=== PATIENT | male | born 1930 | race Asian ===

== ENCOUNTER 2018-01-15 04:45 | Inpatient (IN) | payer OTHER ==
[~2018-01-15] VITALS: Ht 167.6 cm; Wt 54.9 kg
[2018-01-15] MEDS ORDERED: FUROSEMIDE20 M1 ORAL (04:49)
[2018-01-15] MEDS ORDERED: POTASSIUM CHLO10 MEQ ORAL (04:49)
[2018-01-15] MEDS ORDERED: Ipratropium 0.02% Inh Soln 2.5ml UD HHN ONE (05:00)
[2018-01-15] MEDS ORDERED: Albuterol ud Inhalation HHN ONE (05:00)
[2018-01-15 05:10] VITALS: BP 136/71
[2018-01-15 05:15] LABS: HEMATOCRIT 25.8 % (42.0-52.0); HEMOGLOBIN 8.3 G/DL (14.2-18.0); MEAN CORPUSCULAR VOLUME 107 FL (80-99); PLATELET COUNT 65 K/UL (150-450); RED CELL DISTRIBUTION WIDTH 15.5 % (11.6-14.8); WHITE BLOOD COUNT 4.5 K/UL (4.8-10.8)
[2018-01-15 05:34] LABS: ANION GAP 9 mmol/L (5-15); BLOOD UREA NITROGEN 31 mg/dL (7-18); CALCIUM 9.4 MG/DL (8.5-10.1); CARBON DIOXIDE 27 MMOL/L (21-32); CHLORIDE 95 MMOL/L (98-107); CREATININE 2.2 MG/DL (0.55-1.30); POTASSIUM 4.2 MMOL/L (3.5-5.1); SODIUM 131 MMOL/L (136-145)
[2018-01-15 05:35] LABS: INR 1.7 (0.9-1.1)
[2018-01-15 05:38] LABS: APPEARANCE,URINE CLEAR; BILIRUBIN, URINE NEGATIVE (NEGATIVE); GLUCOSE, URINE (UA) NEGATIVE (NEGATIVE); KETONES,URINE NEGATIVE (NEGATIVE); LEUKOCYTE ESTERASE ,URINE NEGATIVE (NEGATIVE); NITRITE,URINE NEGATIVE (NEGATIVE); PH,URINE 5 (4.5-8.0); PROTEIN,URINE 2+ (NEGATIVE); UROBILINOGEN,URINE NORMAL MG/DL (0.0-1.0)
[2018-01-15 05:45] LABS: COLOR,URINE YELLOW
[2018-01-15 05:48] VITALS: BP 87/54
[2018-01-15 05:48] LABS: ALANINE AMINOTRANSFERASE 33 U/L (12-78); ALBUMIN 1.2 G/DL (3.4-5.0); ALBUMIN/GLOBULIN RATIO 0.1 (1.0-2.7); ALKALINE PHOSPHATASE 71 U/L (46-116); ASPARTATE AMINO TRANSFERASE 25 U/L (15-37); BILIRUBIN,TOTAL 0.6 MG/DL (0.2-1.0); CKMB 1.3 NG/ML (0.0-3.6); CREATINE KINASE 53 U/L (26-308)
--- NOTE | 2018-01-15 05:54 | Emergency Room Report ---
History of Present Illness General Chief Complaint: Dyspnea/Respdistress Source: Family Member, EMS Present Illness HPI This is an 87-year-old Upper Sorbian speaking male with no past medical history per his daughter. He presents with chief complaint of shortness of breath. He started complaining of shortness of breath and weakness starting around Father' s Day in December. He saw a primary care doctor once and who told him that he has some leaky valves. He was doing well to tonight when he had acute onset of shortness of breath. Per EMS he was in respiratory distress and was hypoxic. They put him on BiPAP and gave him 0.8 of nitroglycerin. He denies any chest pain, nausea or vomiting or diarrhea. Per daughter, he has significant weight loss for the last 6 or 8 months. Allergies: Coded Allergies: No Known Allergies (Unverified , 01/15/18) Patient History Past Medical History: none, see triage record, old chart reviewed Past Surgical History: none Pertinent Family History: none Social History: Denies: smoking, alcohol use, drug use Immunizations: other Reviewed Nursing Documentation: PMH: Agreed; PSxH: Agreed Nursing Documentation-PMH Past Medical History: No History, Except For Hx Cardiac Problems: Yes - CHF Hx Hypertension: Yes Hx COPD: Yes Review of Systems Constitutional: Reports: malaise Eye: Denies: eye pain, blurred vision ENT: Denies: ear pain, nose congestion, throat swelling Respiratory: Reports: shortness of breath Cardiovascular: Denies: chest pain, palpitations Gastrointestinal: Denies: abdominal pain, diarrhea, nausea, vomiting Musculoskeletal: Denies: back pain, joint pain Skin: Denies: rash Neurological: Denies: headache, numbness Endocrine: Denies: increased thirst, increased urine Hematologic/Lymphatic: Denies: easy bruising All Other Systems: negative except mentioned in HPI Physical Exam Vital Signs Date Time Temp Pulse Resp B/P (MAP) Pulse Ox O2 Delivery O2 Flow Rate FiO2 01/15/18 04:40 98.7 112 16 136/71 94 Non-Rebreather 15.0 98.8 01/15/18 04:57 50 vitals with tachycardia and hypoxia Sp02 EP Interpretation: abnormal General Appearance: moderate distress, cachetic Head: normocephalic, atraumatic Eyes: bilateral eye PERRL, bilateral eye EOMI ENT: hearing grossly normal, normal pharynx Neck: full range of motion, supple, no meningismus Respiratory: chest non-tender, respiratory distress, decreased breath sounds, rales, wheezing Cardiovascular #1: regular rate, rhythm, no murmur Gastrointestinal: normal bowel sounds, non tender, no mass, no organomegaly, no bruit, non-distended Musculoskeletal: back normal, normal range of motion, swelling - 1+ pitting edema Neurologic: alert, oriented x3 Psychiatric: mood/affect normal Skin: warm/dry Procedures Critical Care Time Critical Care Time Critical care is mandated in this patient who presented with pulmonary edema. Patient require my urgent intervention to attenuate the risks of and respiratory collapse which may lead to cardiovascular collapse and . Critical care time is 35 minutes excluding any reportable procedure. Critical care time included evaluation, multiple reevaluation, looking at old charts, interpreting laboratory and diagnostic data, discussing case with patient and family and consultants, and charting. Medical Decision Making Diagnostic Impression: Primary Impression: Respiratory failure with hypoxia Qualified Codes: J96.01 - Acute respiratory failure with hypoxia Additional Impressions: Pulmonary edema Qualified Codes: J81.0 - Acute pulmonary edema Pleural effusion Anemia Qualified Codes: D64.9 - Anemia, unspecified Thrombocytopenia ACS (acute coronary syndrome) Acute exacerbation of CHF (congestive heart failure) Qualified Codes: I50.9 - Heart failure, unspecified Proteinuria Qualified Codes: R80.9 - Proteinuria, unspecified Weight loss, abnormal CKD (chronic kidney disease) Qualified Codes: N18.9 - Chronic kidney disease, unspecified Hyperglycemia ER Course This patient presents with respiratory distress secondary to pulmonary edema and large right pleural effusion. He is anemic, thrombocytopenic and elevated INR. Also has hyperglycemia. I suspect that he has a neoplastic process like pancreatic cancer with metastases to liver and lung. He is much more comfortable on BiPAP. Lasix given. Aspirin given. He has no chest pain. I discussed the case with Dr. Bundy who will admit. Laboratory Tests Test 01/15/18 04:40 01/15/18 05:10 White Blood Count 4.5 K/UL (4.8-10.8) L Red Blood Count 2.40 M/UL (4.70-6.10) L Hemoglobin 8.3 G/DL (14.2-18.0) L Hematocrit 25.8 % (42.0-52.0) L Mean Corpuscular Volume 107 FL (80-99) H Mean Corpuscular Hemoglobin 34.7 PG (27.0-31.0) H Mean Corpuscular Hemoglobin Concent 32.3 G/DL (32.0-36.0) Red Cell Distribution Width 15.5 % (11.6-14.8) H Platelet Count 65 K/UL (150-450) L Mean Platelet Volume 8.7 FL (6.5-10.1) Neutrophils (%) (Auto) % (45.0-75.0) Lymphocytes (%) (Auto) % (20.0-45.0) Monocytes (%) (Auto) % (1.0-10.0) Eosinophils (%) (Auto) % (0.0-3.0) Basophils (%) (Auto) % (0.0-2.0) Prothrombin Time 17.7 SEC (9.30-11.50) H Prothromb Time International Ratio 1.7 (0.9-1.1) H Activated Partial Thromboplast Time 50 SEC (23-33) H Sodium Level 131 MMOL/L (136-145) L Potassium Level 4.2 MMOL/L (3.5-5.1) Chloride Level 95 MMOL/L (98-107) L Carbon Dioxide Level 27 MMOL/L (21-32) Anion Gap 9 mmol/L (5-15) Blood Urea Nitrogen 31 mg/dL (7-18) H Creatinine 2.2 MG/DL (0.55-1.30) H Estimat Glomerular Filtration Rate mL/min (>60) Glucose Level 175 MG/DL (74-106) H Calcium Level 9.4 MG/DL (8.5-10.1) Total Bilirubin 0.6 MG/DL (0.2-1.0) Aspartate Amino Transf (AST/SGOT) 25 U/L (15-37) Alanine Aminotransferase (ALT/SGPT) 33 U/L (12-78) Alkaline Phosphatase 71 U/L (46-116) Total Creatine Kinase 53 U/L (26-308) Creatine Kinase MB 1.3 NG/ML (0.0-3.6) Creatine Kinase MB Relative Index 2.4 Troponin I 0.354 ng/mL (0.000-0.056) Pro-B-Type Natriuretic Peptide 8282 pg/mL (0-125) H Total Protein 12.0 G/DL (6.4-8.2) H Albumin 1.2 G/DL (3.4-5.0) L Globulin 10.8 g/dL Albumin/Globulin Ratio 0.1 (1.0-2.7) L Urine Color Yellow Urine Appearance Clear Urine pH 5 (4.5-8.0) Urine Specific [place] 1.030 (1.005-1.035) Urine Protein 2+ (NEGATIVE) H Urine Glucose (UA) Negative (NEGATIVE) Urine Ketones Negative (NEGATIVE) Urine Occult Blood 2+ (NEGATIVE) H Urine Nitrite Negative (NEGATIVE) Urine Bilirubin Negative (NEGATIVE) Urine Urobilinogen Normal MG/DL (0.0-1.0) Urine Leukocyte Esterase Negative (NEGATIVE) Urine RBC 0-2 /HPF (0 - 0) H Urine WBC 0 /HPF (0 - 0) Urine Squamous Epithelial Cells None /LPF (NONE/OCC) Urine Bacteria Few /HPF (NONE) Urine Fine Granular Casts 0-2 /LPF (NONE) H Urine Coarse Granular Casts 0-2 /LPF (NONE) H Lab Results Impression labs with multiple abnormalities EKG Diagnostic Results Rate: tachycardiac Rhythm: NSR ST Segments: other - NSST changes Rhythm Strip Diag. Results Rhythm Strip Time: 05:52 EP Interpretation: yes Rate: 92 Rhythm: NSR, no PVC's, no ectopy Chest X-Ray Diagnostic Results Chest X-Ray Diagnostic Results : Chest X-Ray Ordered: Yes # of Views/Limited/Complete: 1 View Indication: Shortness of Breath EP Interpretation: Yes Interpretation: no pneumothorax, other - large rt pleural effusion. vasc congestion Impression: Other - rt pleural effusion Electronically Signed by: Dameon Headley MD Last Vital Signs Date Time Temp Pulse Resp B/P (MAP) Pulse Ox O2 Delivery O2 Flow Rate FiO2 01/15/18 05:15 103 27 97 Bi-pap 50 01/15/18 05:10 98.8 136/71 15.0 98.8 Status: improved Disposition: ADMITTED INPATIENT Condition: Critical Referrals: NOT CHOSEN SCOOBY/,REFERRING (PCP) DAMEON HEADLEY M.D. Jan 15, 2018 05:54
[2018-01-15] MEDS ORDERED: Aspirin Baby 81mg ONE (06:31)
[2018-01-15 07:00] VITALS: BP 102/56
--- NOTE | 2018-01-15 07:20 | Infectious Diseases Prog Note ---
Assessment/Plan Problems: (1) Pneumonia Assessment & Plan: will star zosyn , send sputum culture (2) Pleural effusion Assessment & Plan: recommend thoracentesis and fluids to be sent for bacterial culture , fungal , AFB. AND CYTOLOGY (3) CKD (chronic kidney disease) Assessment & Plan: avoid nephrotoxics, monitor renal function (4) Weight loss, abnormal Assessment & Plan: will screen for HIV, await whole body CT scan (5) Respiratory failure with hypoxia Assessment & Plan: due to the above , pulmonary is following Subjective Allergies: Coded Allergies: No Known Allergies (Unverified , 01/15/18) Objective Vital Signs Last 24 Hour Vital Signs Date Time Temp Pulse Resp B/P (MAP) Pulse Ox O2 Delivery O2 Flow Rate FiO2 01/15/18 07:14 Bi-pap 50 01/15/18 07:00 94 20 102/56 96 Bi-pap 15.0 50 01/15/18 05:48 94 23 87/54 97 Bi-pap 15.0 50 01/15/18 05:15 103 27 97 Bi-pap 50 01/15/18 05:10 98.8 112 30 136/71 94 Non-Rebreather 15.0 98.8 01/15/18 05:10 111 30 Bi-pap 15.0 50 01/15/18 05:05 111 30 94 Bi-pap 50 01/15/18 04:59 111 30 Bi-pap 50 01/15/18 04:57 111 30 97 Facial 50 01/15/18 04:40 98.7 112 16 136/71 94 Non-Rebreather 15.0 98.8 Height (Feet): 5 Height (Inches): 6.00 Weight (Pounds): 130 Laboratory Tests Test 01/15/18 04:40 01/15/18 05:10 White Blood Count 4.5 K/UL (4.8-10.8) L Red Blood Count 2.40 M/UL (4.70-6.10) L Hemoglobin 8.3 G/DL (14.2-18.0) L Hematocrit 25.8 % (42.0-52.0) L Mean Corpuscular Volume 107 FL (80-99) H Mean Corpuscular Hemoglobin 34.7 PG (27.0-31.0) H Mean Corpuscular Hemoglobin Concent 32.3 G/DL (32.0-36.0) Red Cell Distribution Width 15.5 % (11.6-14.8) H Platelet Count 65 K/UL (150-450) L Mean Platelet Volume 8.7 FL (6.5-10.1) Neutrophils (%) (Auto) % (45.0-75.0) Lymphocytes (%) (Auto) % (20.0-45.0) Monocytes (%) (Auto) % (1.0-10.0) Eosinophils (%) (Auto) % (0.0-3.0) Basophils (%) (Auto) % (0.0-2.0) Prothrombin Time 17.7 SEC (9.30-11.50) H Prothromb Time International Ratio 1.7 (0.9-1.1) H Activated Partial Thromboplast Time 50 SEC (23-33) H Sodium Level 131 MMOL/L (136-145) L Potassium Level 4.2 MMOL/L (3.5-5.1) Chloride Level 95 MMOL/L (98-107) L Carbon Dioxide Level 27 MMOL/L (21-32) Anion Gap 9 mmol/L (5-15) Blood Urea Nitrogen 31 mg/dL (7-18) H Creatinine 2.2 MG/DL (0.55-1.30) H Estimat Glomerular Filtration Rate mL/min (>60) Glucose Level 175 MG/DL (74-106) H Calcium Level 9.4 MG/DL (8.5-10.1) Total Bilirubin 0.6 MG/DL (0.2-1.0) Aspartate Amino Transf (AST/SGOT) 25 U/L (15-37) Alanine Aminotransferase (ALT/SGPT) 33 U/L (12-78) Alkaline Phosphatase 71 U/L (46-116) Total Creatine Kinase 53 U/L (26-308) Creatine Kinase MB 1.3 NG/ML (0.0-3.6) Creatine Kinase MB Relative Index 2.4 Troponin I 0.354 ng/mL (0.000-0.056) Pro-B-Type Natriuretic Peptide 8282 pg/mL (0-125) H Total Protein 12.0 G/DL (6.4-8.2) H Albumin 1.2 G/DL (3.4-5.0) L Globulin 10.8 g/dL Albumin/Globulin Ratio 0.1 (1.0-2.7) L Urine Color Yellow Urine Appearance Clear Urine pH 5 (4.5-8.0) Urine Specific [place] 1.030 (1.005-1.035) Urine Protein 2+ (NEGATIVE) H Urine Glucose (UA) Negative (NEGATIVE) Urine Ketones Negative (NEGATIVE) Urine Occult Blood 2+ (NEGATIVE) H Urine Nitrite Negative (NEGATIVE) Urine Bilirubin Negative (NEGATIVE) Urine Urobilinogen Normal MG/DL (0.0-1.0) Urine Leukocyte Esterase Negative (NEGATIVE) Urine RBC 0-2 /HPF (0 - 0) H Urine WBC 0 /HPF (0 - 0) Urine Squamous Epithelial Cells None /LPF (NONE/OCC) Urine Bacteria Few /HPF (NONE) Urine Fine Granular Casts 0-2 /LPF (NONE) H Urine Coarse Granular Casts 0-2 /LPF (NONE) H Current Medications Medications (Trade) Dose Ordered Sig/Jasmin Route PRN Reason Start Time Stop Time Status Last Admin Dose Admin Aspirin (ASA) 162 mg DAILY NG 01/15/18 09:00 02/14/18 08:59 01/15/18 06:32 Piperacillin Sod/ Tazobactam Sod 3.375 gm/Dextrose 110 ml @ 27.5 mls/hr EVERY 8 HOURS IVPB 01/15/18 14:00 01/20/18 13:59 Brittney De Leon M.D. Jan 15, 2018 07:20
[2018-01-15] MEDS ORDERED: Gastrograffin 30ml ORAL PRN (08:15)
[2018-01-15] MEDS ORDERED: Lidocaine 1% Plain 30 ml INJ PRN (08:30)
--- NOTE | 2018-01-15 08:51 | Consultation ---
Consult Note Consult Note DICT # [id number] Abdiel Estrada MD Jan 15, 2018 08:51
[2018-01-15] MEDS ORDERED: Piperacillin/Tazobactam 3.375 GM in D5W 110 ML IVPB SCH ×2 (09:00→14:00)
[2018-01-15] MEDS ORDERED: Aspirin Baby 81mg NG SCH (09:00)
--- NOTE | 2018-01-15 09:02 | History & Physical ---
History and Physical History & Physicial seen and examined. Dictation completed Ignacia Bundy MD Jan 15, 2018 09:02
--- NOTE | 2018-01-15 09:25 | Diagnostic Imaging Report ---
Indication: Dyspnea Comparison: None A single view chest radiograph was obtained. Findings: There is a moderate degree of congestive heart failure present with the cephalized, prominent pulmonary vessels, interstitial densities bilaterally. Heart is enlarged. There is suspicion of a moderate right pleural effusion. The bones are osteopenic. IMPRESSION: Congestive heart failure. Right pleural effusion. Note: We been asked to perform thoracentesis emergently. Preliminary laboratory results show platelet count of 65,000 and INR 1.7, which puts the patient at significantly increased risk of bleeding. I presume the procedure is being asked to be performed emergently for therapeutic purposes. Suggest administering platelets and fresh frozen plasma immediately, which should only slightly delay the thoracentesis procedure.
[2018-01-15 10:14] LABS: CHOLESTEROL < 50 MG/DL (< 200); HDL CHOLESTEROL 11 MG/DL (40-60); TRIGLYCERIDES 23 MG/DL (30-150)
--- NOTE | 2018-01-15 11:15 | Consultation ---
DATE OF CONSULTATION: 01/15/2018 PULMONARY CONSULTATION CONSULTING PHYSICIAN: Abdiel Estrada M.D. REFERRING PHYSICIAN: Ignacia Bundy M.D. HISTORY OF PRESENT ILLNESS: The patient is a very pleasant 87-year-old Armenian male with no known past medical history, who was in his usual state of health until Father's Day. Since then, he started having progressive shortness of breath, lower extremity edema, and PND. He saw Dr. Puneet Arenas, in [place], who got an echocardiogram and a CT of the chest, abdomen, and pelvis at [facility]. Per the patient's daughter, based on those results he was started on Lasix for presumed diagnosis of valvular heart disease. The patient was in progressive respiratory distress for the past few days and on the day of admission, he had acute onset of worsening shortness of breath. EMS was notified and the patient was brought to the emergency department. He was placed on BiPAP immediately and given nitroglycerin with some relief of his discomfort. Since being here, he has been afebrile. He was on and off of 15 liters and BiPAP, respiratory rate in the 20s. His laboratory evaluation was significant for white count of 4.5, hemoglobin of 8.3, and platelet count of 65. He had INR of 1.7 and creatinine of 2.2 and a troponin of 0.3. His BNP was also elevated. Chest x-ray, which was done in the ER, but is not available for my review. Per the ER doctor demonstrated a large right-sided pleural effusion. The patient was admitted for further evaluation and management. He has been seen by the Infectious Disease service and is being treated with Zosyn for presumptive pneumonia. PAST MEDICAL HISTORY: None. PAST SURGICAL HISTORY: None. ALLERGIES: No known drug allergies. MEDICATIONS: Prior to admission, medications Lasix 20 mg daily and potassium 10 mEq daily. SOCIAL HISTORY: He is from [place], has been in [facility] [place] [address]. No tobacco, alcohol, or drug use. He has supportive family. FAMILY HISTORY: Noncontributory. REVIEW OF SYSTEMS: Unobtainable as the patient is on BiPAP. PHYSICAL EXAMINATION: VITAL SIGNS: Temperature 98.8, pulse 94, blood pressure 102/56, respiratory rate 20, saturating 96% on BiPAP, and FiO2 50. GENERAL: He is an elderly male, in no acute distress on BiPAP. HEENT: Normocephalic and atraumatic. Oropharynx is clear. Moist mucous membranes. NECK: Supple without lymphadenopathy. JVD is 8 cm. CHEST: Scattered coarse breath sounds, decreased at the right base. HEART: Regular rate and rhythm. ABDOMEN: Soft, nontender, and nondistended. EXTREMITIES: No cyanosis or clubbing. There is 1+ edema. ANCILLARY DATA: White count 4.5, hemoglobin 8.3, and platelet count 65. INR 1.7. Sodium 131, potassium 4.2, chloride 95, bicarb 27, BUN 31, creatinine 2.2, glucose 175, and calcium 9.4. Total bilirubin 0.6. AST 25, ALT 33, and alkaline phosphatase 71. CK 53. Troponin 0.354. BNP 8282. Total protein 12. Albumin 1.2. Urinalysis, 2+ protein, 2+ blood, and 0 to 2 red cells. ASSESSMENT: The patient is an 87-year-old male with no previous known medical history presenting with worsening shortness of breath, large right-sided effusion, likely decompensated heart failure with evidence of abnormal renal function, CKD versus cardiorenal function, pancytopenia, and coagulopathy. There is concern for an underlying neoplastic process and decompensated heart failure. The patient is on BiPAP in the [facility]. PROBLEM LIST: 1. Acute hypoxemic respiratory failure on BiPAP, likely multifactorial. 2. CHF with likely decompensated heart failure. 3. Large right-sided pleural effusion. 4. Abnormal creatinine likely cardiorenal syndrome versus underlying CKD versus other etiologies of JEWELL. 5. Pancytopenia. 6. Coagulopathy. 7. Possible pneumonia. 8. Non ST-elevation [place]. 9. Severe protein-calorie malnutrition with albumin of 1.2. TREATMENT PLAN: 1. Continue [facility] care. 2. Continue BiPAP, we will attempt to wean off. 3. Check an ABG. 4. Titrate down FiO2 to keep saturations greater than 90%. 5. Follow up CT chest, abdomen, and pelvis. 6. We will get records from [facility] as well. 7. Echocardiogram. 8. Thoracentesis, all studies to be sent off. 9. Monitor volumes and renal function, followup renal ultrasound and urine studies, we will attempt a trial of diuresis to see if this is cardiorenal syndrome. 10. N.p.o. while on BiPAP, we will obtain a swallow evaluation afterwards. 11. Check duplex of the lower extremities. 12. Hematology evaluation. 13. The patient is a Full Code. 14. I will discuss the case with the patient's primary physician too, Dr. Puneet Arenas. 15. Dr. Bundy, thank you for allowing me to assist in the care of your patient. If I may be of any assistance in the future, please do not hesitate to ask. Bill Smith JOB#: [id number] CC:
--- NOTE | 2018-01-15 11:50 | Diagnostic Imaging Report ---
Indication:Elevated Bun and Creatinine. Technique: Grayscale and duplex Doppler imaging of the kidneys performed. Comparison: None Findings: The right kidney is unremarkable. Both kidneys measure about 9.9 cm in length. There are multiple cysts within the left kidney. There is a focus of echogenicity which is likely a nonobstructive stone within the midportion of the left kidney. Small amount of ascites noted. IVC is unremarkable in appearance. There is a right pleural effusion. The bladder is unremarkable. IMPRESSION: Suspected nonobstructive stone in left kidney. Multiple cysts in the left kidney. Mild ascites Right pleural effusion
[2018-01-15 12:00] VITALS: BP 154/63
--- NOTE | 2018-01-15 13:22 | Consultation ---
Consult Note Consult Note asked to eval for High Cr This is an 87-year-old Ukrainian speaking male with no past medical history per his daughter. He presents with chief complaint of shortness of breath. He started complaining of shortness of breath and weakness starting around Father' s Day in December. He saw a primary care doctor once and who told him that he has some leaky valves. He was doing well to tonight when he had acute onset of shortness of breath. Per EMS he was in respiratory distress and was hypoxic. They put him on BiPAP and gave him 0.8 of nitroglycerin. He denies any chest pain, nausea or vomiting or diarrhea. Per daughter, he has significant weight loss for the last 6 or 8 months. Allergies: Past Medical History: No History, Except For Hx Cardiac Problems: Yes - CHF Hx Hypertension: Yes h/o COPD data reviewed patient examined- currently on BIPAP Assessment/Plan Renal failure Anemia Pancytopenia.Coagulopathy. HypoAlbuminemia HyperGlobulinemia Proteinuria r/o MM Acute hypoxemic respiratory failure on BiPAP CHF with likely decompensated heart failure. Large right-sided pleural effusion. Possible pneumonia. Non ST-elevation [place]. 24h Urine Proteins- Serum Protein electrophoresis UPEP Kidney STEVE Echo 2D KAELYN HYMAN Jan 15, 2018 13:22
[2018-01-15] MEDS ORDERED: Pantoprazole Inj IVP SCH (13:30)
--- NOTE | 2018-01-15 14:00 | Cardiology Report ---
APPROVED REPORT EXAM: Two-dimensional and M-mode echocardiogram with Doppler and color Doppler. INDICATION Congestive Heart Failure M-Mode DIMENSIONS IVSd1.5 (0.7-1.1cm)Left Atrium (MM)3.8 (1.6-4.0cm) LVDd3.0 (3.5-5.6cm)Aortic Root3.5 (2.0-3.7cm) PWd1.7 (0.7-1.1cm)Aortic Cusp Exc.1.5 (1.5-2.0cm) IVSs1.3 cm LVDs2.1 (2.5-4.0cm) Normal left ventricular chamber size, systolic function and wall motion. Left ventricular ejection fraction estimated to be 65-70%. No evidence of left ventricular hypertrophy. No evidence of pericardial effusion. Mild left atrial enlargements . Right cardiac chamber sizes are within normal limits. Focal aortic valve sclerosis with adequate cusp excursion. Thickened mitral valve leaflets with normal excursion. Mitral annulus and aortic root calcification. Pulmonic valve not well visualized. Normal tricuspid valve structure. IVC at normal at size 2.0without physiologic collapse. suggestive of increased RA pressure. A color flow and spectral Doppler study was performed and revealed: Mild aortic regurgitation. Moderate mitral regurgitation. Mitral diastolic velocities suggest reduced left ventricular relaxation c/w mild LV diastolic dysfunction (Grade I ). Moderate tricuspid regurgitation. Tricuspid systolic velocities suggests peak right ventricular systolic pressure of 59 mmHg,consistent with moderate pulmonary hypertension. Trace Pulmonic regurgitation present.
--- NOTE | 2018-01-15 14:14 | Diagnostic Imaging Report ---
APPROVED REPORT CPT Code: 13459 Present Symptoms Shortness of breath BILATERAL: Imaging reveals a patent deep venous system bilaterally. There is no evidence of thrombus within the femoral, popliteal or tibial segments. The greater saphenous veins are also within normal limits. Doppler indicates normal spontaneous flow within these segments.
[2018-01-15] MEDS ORDERED: Phytonadione 10 mg/mL 1ml amp SUBQ SCH (15:00)
[2018-01-15 16:00] VITALS: BP 104/75
[2018-01-15] MEDS ORDERED: Acetaminophen 650 MG SUPP RECTAL PRN (16:00)
--- NOTE | 2018-01-15 17:18 | GI Initial Consult Note ---
History of Present Illness General Date patient seen: Jan 15, 2018 Time patient seen: 17:09 Reason for Hospitalization: Dyspnea/Respdistress Referring physician: KAREEM SAUCEDO Reason for Consultation: ANEMIA Present Illness HPI This is an 87-year-old Hebrew speaking male with no past medical history per his daughter. He presents with chief complaint of shortness of breath. He started complaining of shortness of breath and weakness starting around Father' s Day in December. He saw a primary care doctor once and who told him that he has some leaky valves. He was doing well to [facility] when he had acute onset of shortness of breath. Per EMS he was in respiratory distress and was hypoxic. They put him on BiPAP and gave him 0.8 of nitroglycerin. He denies any chest pain, nausea or vomiting or diarrhea. Per daughter, he has significant weight loss for the last 6 or 8 months. GI consulted for anemia. ROS limited, patient on BiPap dx with pulmonary edema. Scheduled for thoracentesis tomorrow pending FFP transfusion. Patient presents today with hyperchromic macrocytic anemia, pancytopenia and elevated troponin levels. Significant weight loss per family. Unknown history of endoscopy / colonoscopy. Home Meds Reported Medications Potassium Chloride* (K-DUR*) 10 Meq Capsule.er, ORAL DAILY, #7 TAB 0 Refills 01/15/18 Furosemide* (LASIX*) 20 Mg Tablet, ORAL DAILY, TAB 01/15/18 Med list reviewed/reconciled: Yes Allergies: Coded Allergies: No Known Allergies (Unverified , 01/15/18) Patient History Limited by: medical condition History Provided By: Family Member PMH Narrative Past Medical History: none, see triage record, old chart reviewed Past Surgical History: none Pertinent Family History: none Social History: Denies: smoking, alcohol use, drug use Immunizations: other Reviewed Nursing Documentation: PMH: Agreed; PSxH: Agreed Nursing Documentation-PM Past Medical History: No History, Except For Hx Cardiac Problems: Yes - CHF Hx Hypertension: Yes Hx COPD: Yes Social History: Denies: smoking, alcohol use, drug use, other Review of Systems All Other Systems: limited Physical Exam Vital Signs Date Time Temp Pulse Resp B/P (MAP) Pulse Ox O2 Delivery O2 Flow Rate FiO2 01/15/18 04:40 98.7 112 16 136/71 94 Non-Rebreather 15.0 98.8 01/15/18 04:57 50 Sp02 EP Interpretation: reviewed, normal Labs Laboratory Tests Test 01/15/18 04:40 01/15/18 05:10 01/15/18 08:00 01/15/18 08:30 White Blood Count 4.5 K/UL (4.8-10.8) L Red Blood Count 2.40 M/UL (4.70-6.10) L Hemoglobin 8.3 G/DL (14.2-18.0) L Hematocrit 25.8 % (42.0-52.0) L Mean Corpuscular Volume 107 FL (80-99) H Mean Corpuscular Hemoglobin 34.7 PG (27.0-31.0) H Mean Corpuscular Hemoglobin Concent 32.3 G/DL (32.0-36.0) Red Cell Distribution Width 15.5 % (11.6-14.8) H Platelet Count 65 K/UL (150-450) L Mean Platelet Volume 8.7 FL (6.5-10.1) Neutrophils (%) (Auto) % (45.0-75.0) Lymphocytes (%) (Auto) % (20.0-45.0) Monocytes (%) (Auto) % (1.0-10.0) Eosinophils (%) (Auto) % (0.0-3.0) Basophils (%) (Auto) % (0.0-2.0) Prothrombin Time 17.7 SEC (9.30-11.50) H Prothromb Time International Ratio 1.7 (0.9-1.1) H Activated Partial Thromboplast Time 50 SEC (23-33) H Sodium Level 131 MMOL/L (136-145) L Potassium Level 4.2 MMOL/L (3.5-5.1) Chloride Level 95 MMOL/L (98-107) L Carbon Dioxide Level 27 MMOL/L (21-32) Anion Gap 9 mmol/L (5-15) Blood Urea Nitrogen 31 mg/dL (7-18) H Creatinine 2.2 MG/DL (0.55-1.30) H Estimat Glomerular Filtration Rate mL/min (>60) Glucose Level 175 MG/DL (74-106) H Calcium Level 9.4 MG/DL (8.5-10.1) Total Bilirubin 0.6 MG/DL (0.2-1.0) Aspartate Amino Transf (AST/SGOT) 25 U/L (15-37) Alanine Aminotransferase (ALT/SGPT) 33 U/L (12-78) Alkaline Phosphatase 71 U/L (46-116) Total Creatine Kinase 53 U/L (26-308) Creatine Kinase MB 1.3 NG/ML (0.0-3.6) Creatine Kinase MB Relative Index 2.4 Troponin I 0.354 ng/mL (0.000-0.056) 0.575 ng/mL (0.000-0.056) Pro-B-Type Natriuretic Peptide 8282 pg/mL (0-125) H Total Protein 12.0 G/DL (6.4-8.2) H Albumin 1.2 G/DL (3.4-5.0) L Globulin 10.8 g/dL Albumin/Globulin Ratio 0.1 (1.0-2.7) L Urine Color Yellow Urine Appearance Clear Urine pH 5 (4.5-8.0) Urine Specific [place] 1.030 (1.005-1.035) Urine Protein 2+ (NEGATIVE) H Urine Glucose (UA) Negative (NEGATIVE) Urine Ketones Negative (NEGATIVE) Urine Occult Blood 2+ (NEGATIVE) H Urine Nitrite Negative (NEGATIVE) Urine Bilirubin Negative (NEGATIVE) Urine Urobilinogen Normal MG/DL (0.0-1.0) Urine Leukocyte Esterase Negative (NEGATIVE) Urine RBC 0-2 /HPF (0 - 0) H Urine WBC 0 /HPF (0 - 0) Urine Squamous Epithelial Cells None /LPF (NONE/OCC) Urine Bacteria Few /HPF (NONE) Urine Fine Granular Casts 0-2 /LPF (NONE) H Urine Coarse Granular Casts 0-2 /LPF (NONE) H Hemoglobin A1c 5.8 % (4.3-6.0) Lactate Dehydrogenase 268 U/L (81-234) H Triglycerides Level 23 MG/DL (30-150) L Cholesterol Level < 50 MG/DL (< 200) LDL Cholesterol 7 mg/dL (<100) HDL Cholesterol 11 MG/DL (40-60) L Cholesterol/HDL Ratio 4.5 (3.3-4.4) H Prostate Specific Antigen 1.44 ng/mL (0.13-4.0) HIV (1&2) Antibody Rapid Negative (NEGATIVE) Hepatitis A IgM Antibody Pending Hepatitis B Surface Antigen Pending Hepatitis B Core IgM Antibody Pending Hepatitis C Antibody Pending Test 01/15/18 08:50 01/15/18 10:30 01/15/18 16:05 Arterial Blood pH 7.430 (7.350-7.450) Arterial Blood Partial Pressure CO2 42.3 mmHg (35.0-45.0) Arterial Blood Partial Pressure O2 62.7 mmHg (75.0-100.0) L Arterial Blood HCO3 27.8 mmol/L (22.0-26.0) H Arterial Blood Oxygen Saturation 88.6 % (92.0-98.0) L Arterial Blood Base Excess 3.2 Femi Test Positive C-Reactive Protein, Quantitative 1.9 mg/dL (0.00-0.90) H Hemoglobin A Pending Hemoglobin A2 Pending Hemoglobin C Pending Hemoglobin F () Pending Hemoglobin S Pending Variant Hemoglobin Pending Hemoglobin Electrophoresis Interp Pending Hemoglobin Interpretation Pending Hemoglobin Solubility Pending PTT Mixing Study Pending APTT Patient/Control Mix Pending Mix PTT Incubation Time Pending Mix PTT Normal/Saline 1:1 Immediate Pending Thrombin Time Normal Plasma Pending Troponin I Pending Carcinoembryonic Antigen Pending CA 15-3 Antigen Pending CA 19-9 Antigen Pending Immunoglobulin G Pending Immunoglobulin A Pending Immunoglobulin M Pending Immunofixation Screen Pending General Appearance: well appearing, no apparent distress, alert, thin Head: normocephalic EENT: PERRL/EOMI, normal ENT inspection Neck: supple Respiratory: other - on BIPAP Cardiovascular: normal rate Gastrointestinal: normal inspection, non tender, soft, normal bowel sounds, non -distended Rectal: deferred Genitourinary: deferred Musculoskeletal: normal inspection, back normal Neurologic: alert, responsive Skin: normal inspection, normal color, no rash, warm/dry, palpation normal, well hydrated Lymphatic: normal inspection, no adenopathy Current Medications Current Medications Medications (Trade) Dose Ordered Sig/Jasmin Route PRN Reason Start Time Stop Time Status Last Admin Dose Admin Acetaminophen (Tylenol) 650 mg Q4H PRN RECTAL Mild Pain/Temp > 100.5 01/15/18 16:00 02/14/18 15:59 01/15/18 16:14 Aspirin (ASA) 162 mg DAILY NG 01/15/18 09:00 02/14/18 08:59 01/15/18 06:32 Diatrizoate Meglum/ Diatrizoate Sod (Gastrografin) 30 ml NOW PRN ORAL Radiology Procedure 01/15/18 08:15 01/17/18 08:10 Furosemide (Lasix) 40 mg DAILY IV 01/15/18 09:00 02/14/18 08:59 01/15/18 09:54 Lidocaine HCl (Xylocaine 1% 30ml) 30 ml ONCE PRN INJ thoracentesis 01/15/18 08:30 01/15/18 23:59 Pantoprazole (Protonix) 40 mg DAILY IVP 01/16/18 09:00 02/15/18 08:59 Piperacillin Sod/ Tazobactam Sod 3.375 gm/Dextrose 110 ml @ 27.5 mls/hr Q12HR IVPB 01/15/18 09:00 01/22/18 08:59 01/15/18 09:53 Potassium Chloride 100 ml @ 100 mls/hr Q24H IVPB 01/15/18 10:00 02/14/18 09:59 01/15/18 15:10 Potassium Chloride 100 ml @ 100 mls/hr Q24H IVPB 01/15/18 11:00 02/14/18 10:59 01/15/18 16:24 GI: Plan Problems: (1) Severe malnutrition (2) Dehydration (3) Weight loss, abnormal (4) Anemia (5) Pancytopenia (6) Pulmonary edema Plan defer GI procedures at this time, respiratory status not stable and elevated troponin levels anemia work up OB stool r/o GI bleed monitor H&H, prn transfusions bowel regime ppi fu labs, GGT, IgG, tumor markers hep panel pending Discussed with Dr. Lemus. Thank you for this patient referral, we will follow. The patient was seen and examined at bedside and all new and available data was reviewed in the patients chart. I agree with the above findings, impression and plan. (Patient seen earlier today. Signature stamp does not reflect patient encounter time.). - MD Fang Salas,[facility]-[place] CIT[employer]EN PARTICIPATION SPECIALIST Jan 15, 2018 17:18
[2018-01-15] MEDS ORDERED: Albuterol/Ipratropium 3ml neb HHN PRN (17:30)
--- NOTE | 2018-01-15 18:00 | History and Physical Report ---
DATE OF ADMISSION: 01/15/2018 SOURCE OF INFORMATION: The patient and EMR. HISTORY OF PRESENT ILLNESS: The patient is a pleasant 87-year-old Greek male. The patient has recently diagnosis of cardiac heart failure in the outpatient Cardiology Office. Per family, the patient had not been seen by any provider for his entire life and had no known medical diagnosis. At the time of evaluation, the patient is a stuporous on BiPAP machine. The daughter at the bedside. Per daughter, he had been feeling very fatigued and weak and complaining of shortness of breath, worsening within the last couple of days, but denies any chest pain. Denies any nausea or vomitus. Denies any fever or chills. Denies any severe pain. ALLERGIES: NKDA. PAST MEDICAL HISTORY: Heart failure and hypokalemia, otherwise denies. PAST SURGICAL HISTORY: Denies. FAMILY HISTORY: Reviewed, noncontributory. SOCIAL HISTORY: The patient lives with his . Daughter also lives in the same location. Negative for prior history of illicit drug abuse, smoking or alcohol abuse. MEDICATIONS: Home medications, potassium supplements and Lasix. PHYSICAL EXAMINATION: VITAL SIGNS: Blood pressure 80/60, pulse rate 105, respiratory rate 28, BiPAP setting reviewed. HEAD AND NECK: Atraumatic and normocephalic. CHEST: Diffuse bronchial breathing sounds. Negative for wheezing. Decreased breathing sounds in right-sided. HEART: S1 and S2 regular rate and rhythm. Tachycardic. Negative for S4. ABDOMEN: Soft. No organomegaly. Bowel sounds are normal. MUSCULOSKELETAL: Atrophied musculature. No gross lateralized motor deficit. PSYCHIATRIC: Mood and affect are normal. LABORATORY AND DIAGNOSTIC DATA: Labs dated 01/15/2018 shows WBC 4.5, hemoglobin of 8.3, platelet of 65. Sodium 131, potassium 4.2, BUN 31, and creatinine 2.2. Troponin 0.5. Albumin of 1.2. Urinalysis unremarkable. ASSESSMENT AND PLAN: 1. Sepsis, possibility of underlying healthcare associated pneumonia cannot be excluded. 2. Large right-sided pleural effusion. 3. Hypoxemic respiratory failure, controlled on BiPAP. 4. COPD. 5. Pancytopenia. 6. Severe anemia. 7. Hyponatremia. 8. Abnormal troponin, possibility of acute coronary syndrome cannot be excluded. 9. GI and DVT prophylaxis. PLAN OF CARE: We agree with the admission to step-down unit. I had a detailed conversation with the daughter at the bedside. We will continue with the empiric antibiotic regimen. Pulmonary and Infectious Disease have been notified. We will consult the Hematology-Oncology. Continue with monitoring electrolytes. IV fluid regimen. We will continue with the Lasix IV and potassium supplementation. Nephrology consult. Ignacia Bundy M.D. DR: ALEN JOB#: [id number] CC:
--- NOTE | 2018-01-15 19:41 | Cardiology Progress Note ---
Assessment/Plan Assessment/Plan The patient is seen and examined, full consult note will be dictated. Objective Last 24 Hour Vital Signs Date Time Temp Pulse Resp B/P (MAP) Pulse Ox O2 Delivery O2 Flow Rate FiO2 01/15/18 17:59 104 38 92 Bi-pap 90 01/15/18 17:52 102 38 90 Bi-pap 90 01/15/18 17:42 104 38 90 Facial 90 01/15/18 16:44 102.3 01/15/18 16:14 103.3 01/15/18 16:00 108 01/15/18 16:00 Bi-pap 90.0 01/15/18 16:00 90 01/15/18 16:00 103.3 105 22 104/75 (85) 91 103.3 01/15/18 15:42 Bi-pap 35.0 01/15/18 15:16 110 35 93 Facial 85 01/15/18 13:22 101 41 92 Facial 85 01/15/18 12:00 98.2 108 19 154/63 (93) 95 98.2 01/15/18 12:00 35 01/15/18 12:00 Bi-pap 35.0 01/15/18 11:24 100 01/15/18 10:44 90 28 100 Facial 75 01/15/18 08:51 100 01/15/18 08:42 106 38 92 Facial 50 01/15/18 08:00 50 01/15/18 07:55 98.8 94 20 102/56 96 Bi-pap 50 98.8 01/15/18 07:18 102 27 96 Facial 50 01/15/18 07:14 Bi-pap 50 01/15/18 07:00 94 20 102/56 96 Bi-pap 15.0 50 01/15/18 05:48 94 23 87/54 97 Bi-pap 15.0 50 01/15/18 05:15 103 27 97 Bi-pap 50 01/15/18 05:10 98.8 112 30 136/71 94 Non-Rebreather 15.0 98.8 01/15/18 05:10 111 30 Bi-pap 15.0 50 01/15/18 05:05 111 30 94 Bi-pap 50 01/15/18 04:59 111 30 Bi-pap 50 01/15/18 04:57 111 30 97 Facial 50 01/15/18 04:40 98.7 112 16 136/71 94 Non-Rebreather 15.0 98.8 Intake and Output 01/14/18 01/15/18 19:00 07:00 Output Total 200 ml Balance -200 ml Output Urine Total 200 ml # Voids 50 Laboratory Tests Test 01/15/18 04:40 01/15/18 05:10 01/15/18 08:00 01/15/18 08:30 White Blood Count 4.5 K/UL (4.8-10.8) L Red Blood Count 2.40 M/UL (4.70-6.10) L Hemoglobin 8.3 G/DL (14.2-18.0) L Hematocrit 25.8 % (42.0-52.0) L Mean Corpuscular Volume 107 FL (80-99) H Mean Corpuscular Hemoglobin 34.7 PG (27.0-31.0) H Mean Corpuscular Hemoglobin Concent 32.3 G/DL (32.0-36.0) Red Cell Distribution Width 15.5 % (11.6-14.8) H Platelet Count 65 K/UL (150-450) L Mean Platelet Volume 8.7 FL (6.5-10.1) Neutrophils (%) (Auto) % (45.0-75.0) Lymphocytes (%) (Auto) % (20.0-45.0) Monocytes (%) (Auto) % (1.0-10.0) Eosinophils (%) (Auto) % (0.0-3.0) Basophils (%) (Auto) % (0.0-2.0) Prothrombin Time 17.7 SEC (9.30-11.50) H Prothromb Time International Ratio 1.7 (0.9-1.1) H Activated Partial Thromboplast Time 50 SEC (23-33) H Sodium Level 131 MMOL/L (136-145) L Potassium Level 4.2 MMOL/L (3.5-5.1) Chloride Level 95 MMOL/L (98-107) L Carbon Dioxide Level 27 MMOL/L (21-32) Anion Gap 9 mmol/L (5-15) Blood Urea Nitrogen 31 mg/dL (7-18) H Creatinine 2.2 MG/DL (0.55-1.30) H Estimat Glomerular Filtration Rate mL/min (>60) Glucose Level 175 MG/DL (74-106) H Calcium Level 9.4 MG/DL (8.5-10.1) Total Bilirubin 0.6 MG/DL (0.2-1.0) Aspartate Amino Transf (AST/SGOT) 25 U/L (15-37) Alanine Aminotransferase (ALT/SGPT) 33 U/L (12-78) Alkaline Phosphatase 71 U/L (46-116) Total Creatine Kinase 53 U/L (26-308) Creatine Kinase MB 1.3 NG/ML (0.0-3.6) Creatine Kinase MB Relative Index 2.4 Troponin I 0.354 ng/mL (0.000-0.056) 0.575 ng/mL (0.000-0.056) Pro-B-Type Natriuretic Peptide 8282 pg/mL (0-125) H Total Protein 12.0 G/DL (6.4-8.2) H Albumin 1.2 G/DL (3.4-5.0) L Globulin 10.8 g/dL Albumin/Globulin Ratio 0.1 (1.0-2.7) L Urine Color Yellow Urine Appearance Clear Urine pH 5 (4.5-8.0) Urine Specific [place] 1.030 (1.005-1.035) Urine Protein 2+ (NEGATIVE) H Urine Glucose (UA) Negative (NEGATIVE) Urine Ketones Negative (NEGATIVE) Urine Occult Blood 2+ (NEGATIVE) H Urine Nitrite Negative (NEGATIVE) Urine Bilirubin Negative (NEGATIVE) Urine Urobilinogen Normal MG/DL (0.0-1.0) Urine Leukocyte Esterase Negative (NEGATIVE) Urine RBC 0-2 /HPF (0 - 0) H Urine WBC 0 /HPF (0 - 0) Urine Squamous Epithelial Cells None /LPF (NONE/OCC) Urine Bacteria Few /HPF (NONE) Urine Fine Granular Casts 0-2 /LPF (NONE) H Urine Coarse Granular Casts 0-2 /LPF (NONE) H Hemoglobin A1c 5.8 % (4.3-6.0) Lactate Dehydrogenase 268 U/L (81-234) H Triglycerides Level 23 MG/DL (30-150) L Cholesterol Level < 50 MG/DL (< 200) LDL Cholesterol 7 mg/dL (<100) HDL Cholesterol 11 MG/DL (40-60) L Cholesterol/HDL Ratio 4.5 (3.3-4.4) H Prostate Specific Antigen 1.44 ng/mL (0.13-4.0) HIV (1&2) Antibody Rapid Negative (NEGATIVE) Hepatitis A IgM Antibody Pending Hepatitis B Surface Antigen Pending Hepatitis B Core IgM Antibody Pending Hepatitis C Antibody Pending Test 01/15/18 08:50 01/15/18 10:30 01/15/18 16:05 01/15/18 16:54 Arterial Blood pH 7.430 (7.350-7.450) 7.296 (7.350-7.450) Arterial Blood Partial Pressure CO2 42.3 mmHg (35.0-45.0) 63.8 mmHg (35.0-45.0) *H Arterial Blood Partial Pressure O2 62.7 mmHg (75.0-100.0) L 67.6 mmHg (75.0-100.0) L Arterial Blood HCO3 27.8 mmol/L (22.0-26.0) H 30.4 mmol/L (22.0-26.0) H Arterial Blood Oxygen Saturation 88.6 % (92.0-98.0) L 88.6 % (92.0-98.0) L Arterial Blood Base Excess 3.2 3.2 Femi Test Positive Positive C-Reactive Protein, Quantitative 1.9 mg/dL (0.00-0.90) H Hemoglobin A Pending Hemoglobin A2 Pending Hemoglobin C Pending Hemoglobin F () Pending Hemoglobin S Pending Variant Hemoglobin Pending Hemoglobin Electrophoresis Interp Pending Hemoglobin Interpretation Pending Hemoglobin Solubility Pending PTT Mixing Study Pending APTT Patient/Control Mix Pending Mix PTT Incubation Time Pending Mix PTT Normal/Saline 1:1 Immediate Pending Thrombin Time Normal Plasma Pending Troponin I 0.709 ng/mL (0.000-0.056) Carcinoembryonic Antigen Pending CA 15-3 Antigen Pending CA 19-9 Antigen Pending Immunoglobulin G Pending Immunoglobulin A Pending Immunoglobulin M Pending Immunofixation Screen Pending Keagan Smith MD Jan 15, 2018 19:41
--- NOTE | 2018-01-15 19:45 | Consultation ---
DATE OF CONSULTATION: 01/15/2018 INFECTIOUS DISEASE CONSULTATION CONSULTING PHYSICIAN: Brittney Fletcher M.D. REQUESTING PHYSICIAN: Ignacia Bundy M.D. REASON FOR CONSULTATION: Right pleural effusion with underlying right-sided pneumonia, recommendation for antibiotic therapy in a patient with respiratory failure. HISTORY OF PRESENT ILLNESS: The patient is an 87-year-old, Occitan male with no significant past medical history, presented to [facility] emergency room for sudden onset of shortness of breath, leg swelling, and chest pain. The patient never saw a physician in his life except recently when he visited the primary care who ordered an echocardiogram and a CT scan at [facility] emergently. He was told that he has leaky valve as per his daughter's report. The patient was started on Lasix and his respiratory status continued to get worse, and he developed cough and shortness of breath. He was found to be hypoxemic, so he was placed on BiPAP immediately via paramedics and brought to the emergency room. Chest x-ray showed large pleural effusion with lung atelectasis suggestive of pneumonia, so infectious disease consultation was requested for antibiotic treatment and further management. As of note, the patient is on BiPAP, poor historian, cannot provide any history at this point. History was mainly obtained from the daughter at the bedside and the medical record. REVIEW OF SYSTEMS: Unable to obtain at this point. PAST MEDICAL HISTORY: Negative. PAST SURGICAL HISTORY: Negative. ALLERGIES: He has no known drug allergy. MEDICATIONS: He is on Lasix and potassium. For the rest of his medications, please refer to MAR. SOCIAL HISTORY: The patient lives at home with family, unemployed, originally from [place]. No recent drugs, tobacco, or alcohol. FAMILY HISTORY: Noncontributory. LABORATORY DATA: Labs showed white count of 4.5, hemoglobin of 8.3, platelet count of 65. BUN of 31 and creatinine of 2.2. IMAGING: Chest x-ray showed right pleural effusion with lung atelectasis. Echocardiogram showed ejection fraction of 65% to 70% with cardiac chamber size within normal limits. Focal aortic valve sclerosis. Thickened mitral valve with normal excursion. Normal tricuspid valve structure. PHYSICAL EXAMINATION: VITAL SIGNS: Temperature 98.2, pulse 108, respirations 19, blood pressure 154/63, saturation 95% on BiPAP machine with FiO2 of 75%. GENERAL: Elderly male, cachectic, lying in bed, on BiPAP machine, unresponsive, not in acute distress. Family at the bedside. HEENT: Normocephalic and atraumatic. Pupils mildly reactive to light. Unable to assess oral mucosa due to BiPAP mask. NECK: Supple. No lymphadenopathy. CARDIOVASCULAR: Tachycardic. S1 and S2 normal. I could not hear any murmur. LUNGS: He had diffuse wheezing, can be heard anteriorly, worse at the bases with normal breathing efforts. ABDOMEN: Soft, nontender, and nondistended. Normal bowel sounds. No hepatosplenomegaly or ascites. EXTREMITIES: Edema +1. No cyanosis or clubbing. SKIN: No rash. No hives. ASSESSMENT AND RECOMMENDATION: 1. Pneumonia with right lower lobe atelectasis. We will start the patient on Zosyn empiric coverage and send sputum culture if he produces any. Monitor chest x-ray. The patient will benefit from thoracentesis and fluid to be sent for culture. 2. Pleural effusion, unilateral, rule out underlying pneumonia versus congestive heart failure versus malignant process. Recommend thoracentesis and fluid to be sent for bacterial, fungal, AFB, and cytology. 3. Chronic kidney disease. Avoid nephrotoxics. Monitor renal function. Nephrology is consulted. 4. Weight loss and cachexia. Rule out underlying malignant process. Agree on CT scan of the chest, abdomen, and pelvis. We will screen for HIV and hypothyroidism. 5. Respiratory failure with hypoxemia due to the above. The patient will benefit from thoracentesis. Pulmonary team is following. ID will continue to follow. Thank you for the consult. Brittney Fletcher M.D. DR: DADA JOB#: [id number] CC:
[2018-01-15] MEDS ORDERED: Tubing IV Secondary IV ONE (21:56)
[2018-01-15] MEDS ORDERED: NS 275ml ONE (21:56)
[2018-01-15] MEDS ORDERED: Tubing Blood Filter IV ONE (21:56)
--- NOTE | 2018-01-16 03:00 | Consultation ---
DATE OF CONSULTATION: 01/15/2018 HEMATOLOGY/ONCOLOGY CONSULTATION CONSULTING PHYSICIAN: Fermin Whiteside M.D. REQUESTING PHYSICIAN: Ignacia Bundy M.D. REASON FOR CONSULTATION: Evaluation of failure to thrive, pancytopenia. IDENTIFYING DATA: Dear Dr. Ignacia Bundy, The patient is a pleasant 87-year-old male, Bengali speaking, at this time brought in by family from [facility]. As per family, he has not seen any provider his entire life. As per daughter, has been feeling very fatigued, very weak, at this time noted to have anemia and pancytopenia in addition to elevation in troponin, INR elevation. Blood gas reviewed, acidotic, hepatitis panel and HIV is pending, though HIV is negative at this time. Imaging has been reviewed. Duplex of lower extremities negative. Hematology Service was consulted for further evaluation and treatment. PAST MEDICAL HISTORY: None reported. The patient medical care CHF, hypertension, and COPD. PAST SURGICAL HISTORY: None noted. ALLERGIES: No known drug allergies. FAMILY HISTORY: Noncontributory. REVIEW OF SYSTEMS: CONSTITUTIONAL: No fevers, chills, or night sweats. SKIN: No rashes, bumps, or itching. HEENT: No headache, hearing or vision changes. BREASTS: No lumps, pain, or discharge. PULMONARY: No cough, sputum, or shortness of breath. GASTROINTESTINAL: No nausea, vomiting, or diarrhea. GENITOURINARY: No dysuria, frequency, or urgency. MUSCULOSKELETAL: No muscle pain, joint swelling, or trauma. PHYSICAL EXAMINATION: VITAL SIGNS: Reviewed. GENERAL: No acute distress. PULMONARY: Decreased breath sounds. CARDIOVASCULAR: Regular rate. No S3 or S4. ABDOMEN: Soft, nontender, and nondistended. EXTREMITIES: A 1+ edema. LABORATORY AND DIAGNOSTIC DATA: Laboratories have been reviewed. ASSESSMENT AND RECOMMENDATION: 1. Pancytopenia, rule out malignancy, infiltration of bone marrow in addition to hepatitis panel and HIV, HIV is currently negative. 2. Anemia due to underlying chronic disease. Closely monitor. 3. Failure to thrive. Decreased p.o. intake. Tumor marker is pending. CT scan of chest, abdomen, and pelvis is pending. 4. Respiratory distress, on BiPAP. 5. Sepsis, rule out community-acquired pneumonia. 6. Chronic obstructive pulmonary disease history. 7. Hyponatremia. I appreciate the consultation. Fermin Whiteside M.D. DR: ALFREDO JOB#: [id number] CC:
--- NOTE | 2018-01-16 04:00 | Consultation ---
DATE OF CONSULTATION: 01/15/2018 CARDIOLOGY CONSULTATION CONSULTING PHYSICIAN: Keagan Smith M.D. REFERRING PHYSICIAN: Ignacia Bundy M.D. REASON FOR CONSULTATION: Management of tachycardia. HISTORY OF PRESENT ILLNESS: The patient is a very unfortunate 87-year-old Upper Sor[place] speaking gentleman who presents to the hospital with acute onset of shortness of breath and weakness that has been going on since Father's Day. Apparently, the patient saw the primary care doctor who told him that he had leaky valves. He apparently was doing fine until he had acute onset of shortness of breath. According to EMS, the patient was in respiratory distress and hypoxic. BiPAP was initiated and the patient was brought down to the emergency department at [facility]. At the time of arrival to the hospital, the blood pressure was 136/71 mmHg and pulse of 112. A 12-lead electrocardiogram was significant for sinus tachycardia. Initial troponin I level was slightly elevated at 0.354 and proBNP was 8282. The patient was admitted to [facility] for further evaluation and management. Initial chest x-ray done in the emergency department was significant for right pleural effusion and underlying infiltration. Consideration was made in the emergency department for right thoracentesis, which was not performed due to low platelet count. A 2D echocardiography done on 01/15/2018 has revealed normal LV systolic function with LVEF of about 65% to 70% with E to A-wave reversal consistent with possible impaired left ventricular relaxation with normal intracardiac filling pressure. There was significant pulmonary hypertension with RVSP of at least 60 to 65 mmHg and a great deal of pleural effusion. IVC was also at 2.0 without any physiological collapse indicating right atrial pressure approximately 15 mmHg. There was trace mitral regurgitation, pulmonary regurgitation, and mild aortic regurgitation. At the time of my evaluation, the patient was in respiratory distress with evidence of hypoxemic respiratory failure evident on the ABG and had to be placed on BiPAP mask. ABG at ____ revealed respiratory acidosis with hypoxemia consistent with hypoxic hypercarbic respiratory failure. Dr. Estrada in pulmonary consultation has seen the patient and managed the respiratory condition. PAST MEDICAL HISTORY: 1. History of congestive heart failure according to the records. 2. History of hypertension. 3. History of COPD. PAST SURGICAL HISTORY: None. SOCIAL HISTORY: No history of tobacco, alcohol, or illicit drug use. FAMILY HISTORY: No premature coronary artery disease in first-degree relatives. ALLERGIES: No known drug allergies. MEDICATIONS: List of medications, K-Dur 10 mEq p.o. daily and furosemide 20 mg p.o. daily. DIAGNOSTIC DATA: Chest x-ray showed right pleural effusion with congestive heart failure, cardiomegaly, possible underlying infiltration in the right lower lung. PHYSICAL EXAMINATION: VITAL SIGNS: Blood pressure was 136/71, respirations 16, pulse of 112, temperature 98.7 degrees Fahrenheit, and O2 saturation 94% on non-rebreather mask at 15 liters at the time of ER evaluation. HEENT: Atraumatic and normocephalic. Anicteric. Pupils are equal, round, and reactive to light and accommodation. The patient on BiPAP mask. NECK: JVP cannot be assessed due to BiPAP mask. LUNGS: Diminished breath sounds in the right lung. CARDIOVASCULAR: Normal S1 and S2. Tachycardia. No murmurs, gallops, or rubs. ABDOMEN: Soft, nontender, and nondistended. No hepatosplenomegaly. Positive bowel sounds. EXTREMITIES: No evidence of edema, clubbing, or cyanosis. LABORATORY FINDINGS: Sodium is 131, potassium is 4.2, chloride is 95, bicarbonate 27, BUN of 31, creatinine 2.2, and glucose of 175. Calcium is 9.4. Troponin I was 0.354 and 0.575. ProBNP was 8282. Albumin is 1.2. INR is 1.7. WBC is 4.5, hemoglobin 8.3, hematocrit of 25.8, and platelet count is 65,000. INR is 1.7. ASSESSMENT AND PLAN: 1. Dyspnea, most likely due to right lower lobe pneumonia with associated parapneumonic effusion leading to acute hypoxic hypercapnic respiratory acidosis. Review of 2D echocardiography does not confirm acute congestive heart failure at this time. 2. The patient requires to be continued on pulmonary toilet. Continue pulmonary management per Dr. Estrada. 3. Sinus tachycardia, likely secondary to hypoxemia. 4. Anemia. 5. Slight elevation of troponin I level, most likely due to sepsis in this patient. 6. Possible acute kidney injury due to sepsis/possible ATN. 7. Low albumin level, likely due to protein-calorie malnutrition. I would like to thank, Dr. Bundy, for the courtesy of this consultation. Keagan Smith M.D. DR: NESTOR JOB#: [id number] CC:
[2018-01-16] MEDS ORDERED: Pantoprazole Inj IVP SCH (09:00)
--- NOTE | 2018-01-17 18:46 | Cardiology Report ---
APPROVED REPORT EKG Measurement Heart [id number] Sinus tachycardia Otherwise normal ECG
--- NOTE | 2018-01-18 09:57 | Discharge Summary ---
Discharge Summary Hospital Course Date of Admission Jan 15, 2018 at 05:25 Date of Discharge Jan 15, 2018 at 21:57 Admitting Diagnosis PULMONARY EDEMA, CHF HPI Flavio Erickson is a 87 year old male who was admitted on Jan 15, 2018 at 05:25 for Pulmonary Edema,Congestive Heart Failure Hospital Course summary #[id number] Discharge Discharge Disposition Patient Discharge Instructions Discharge Instructions Special Instructions I have been assigned to complete a D/C Summary on this account. I was not involved in the patient management Princess Justin NP Jan 18, 2018 09:57
--- NOTE | 2018-01-19 02:15 | Discharge Summary 2 SIG ---
SUMMARY DATE OF ADMISSION: 01/15/2018 DATE OF DISCHARGE: 01/15/2018 REASON FOR ADMISSION: 87-year-old male, recently diagnosed with congestive heart failure, according to the daughter, brought to emergency department with a chief complaint of shortness of breath. Daughter reported that shortness of breath was getting progressively worse along with generalized weakness. They saw the primary care provider, who stated that the patient had leaky valves. Upon evaluation in the emergency room, the patient was in respiratory distress and initially required non-rebreathing mask. Patient denied chest pain, nausea, vomiting, and diarrhea. Vital signs revealed tachycardia. ABG initially revealed acute hypoxemia and repeated ABG revealed hypercapnia as well. The patient was placed on the BiPAP. Chest x-ray revealed evidence of moderate right pleural effusion and probable right lower lobe pneumonia. INR 1.7. Platelets 67,000. Hemoglobin 8.3 and hematocrit 25.8. WBC 4.5. Sodium 131. Troponin 0.354. Pro BNP 8282. BUN 31 and creatinine 2.2. LDH 268. C-reactive protein 1.9. Patient with DNR/DNI status ADMITTING DIAGNOSES: 1. Sepsis. 2. Probable healthcare-associated pneumonia. 3. Right pleural effusion. 4. Acute hypoxemic respiratory failure. 5. Pancytopenia. 6. Abnormal troponin, rule out acute coronary syndrome. 7. Renal failure: acute versus chronic 8. Abnormal weight loss. 9. Protein-calorie malnutrition. CONSULTANTS: 1. Keagan Smith M.D., [place]. 2. Brittney Fletcher M.D., Infectious Disease. 3. Hans Perea M.D., Biofuels Manager. 4. Abdiel Estrada M.D., [employer] Former. 5. Abdon Lemus M.D., GI specialist. 6. Fermin Whiteside M.D., [employer]/Oncologist. HOSPITAL COURSE: The patient was admitted to [facility]. The patient was on the BiPAP. FiO2 titrated to keep pulse oximetry above 92%. [employer] Former closely followed. Pulmonary toilet provided as needed. CT of the chest, abdomen, and pelvis was ordered. Unable to do thoracentesis due to coagulopathy with INR 1.7 and platelets 67,[address] the patient at high risk for bleeding. Volumes and renal parameters were closely monitored. Venous duplex of bilateral lower extremity was negative. [place] closely followed. Echocardiogram revealed preserved ejection fraction of 65% to 70%. Right ventricular systolic pressure of 59 consistent with moderate pulmonary hypertension as well as evidence of moderate mitral regurgitation. According to cable driller, there was no evidence to confirm acute congestive heart failure. The patient had shortness of breath secondary to right lower lobe pneumonia with associated parapneumonic effusion leading to acute hypoxemic hypercapnic respiratory acidosis. Sinus tachycardia was likely secondary to hypoxemia. Initially, cable driller stated that the slight elevation in troponin most likely due to sepsis in this patient, however, troponin continued to rise from initial 0.354 to 0.709 later on within 10 hours. Per rating officer and sourcing analyst, the patient probably had NSTEMI. The patient with DNR/DNI status. Patient was not a candidate for invasive catheterization at that time secondary to unstable respiratory status. Biofuels Manager closely followed. Per sourcing analyst, the patient had renal failure : chronic kidney disease versus acute kidney injury, and possible acute tubular necrosis. Biofuels Manager initiated workup to rule out multiple myeloma due to hypoalbuminemia, hyperglobulinemia, and proteinuria. Serum protein electrophoresis was ordered along with a 24-hour urine protein and urine protein electrophoresis. Kidney ultrasound revealed no evidence of hydronephrosis. Normal bilateral echogenicity. Nonobstructive stone in the left kidney with multiple cysts in the left kidney. Renal parameters and electrolytes were closely monitored. Electrolytes were replaced as needed. Nephrotoxics were avoided. Volumes were closely monitored. [employer]/oncologist closely followed due to pancytopenia and anemia. Blood cultures were negative. [employer] wanted to rule out malignancy, infiltration of bone marrow in addition to hepatitis panel. HIV status was negative. Anemia was due to underlying chronic disease. GI specialist closely followed as well due to abnormal weight loss as stated by the patient's daughter. The patient also has low albumin. GI procedures were deferred at that time given unstable respiratory status. Anemia workup was ordered. Stool for occult blood was ordered. GI specialist recommended closely monitor hemoglobin and hematocrit with goal to keep hemoglobin above 7. Bowel regimen instituted. PPI was continued. Cancer tumor markers were all negative. Hepatitis panel was pending. IgG were ordered along with GGT. The patient's condition was fast deteriorating. Patient with DNR/DNI status. The patient was pronounced on 01/15/2018 at 19:10 p.m. CAUSE OF : Cardiopulmonary arrest. FINAL DIAGNOSES: 1. Sepsis. 2. Probable healthcare-associated pneumonia/right lower lobe with associated pleural effusion. 3. Right parapneumonic effusion. 4. Acute hypoxemic hypercapnic respiratory failure , requiring BiPAP. 5. Chronic obstructive pulmonary disease. 6. Pancytopenia. 7. Anemia of chronic disease. 8. Coagulopathy. 9. Thrombocytopenia. 10. Congestive heart failure. 11. Elevated troponin, probably non-ST elevated myocardial infarction. 12. Renal failure: chronic kidney disease versus acute kidney injury 13. Possible acute tubular necrosis. 14. Rule out multiple myeloma. 15. Severe protein-calorie malnutrition. 16. Abnormal weight loss. Ignacia Bundy M.D. I have been assigned to dictate discharge summary on this account and I was not involved in the patient's management. Princess Cantudina NStacyPStacy DR: RAMÓN JOB#: [id number] CC: FARIDEH
== END 2018-01-15 21:57 | disposition expired | DRG 871 ==
LOC: EDBD 04:45 → EMR 05:04 → 2W 05:25 → EDBEDREQ 05:52
PROC: 5A09357 Assistance with Respiratory Ventilation, Less than 24 Consecutive Hours, Continuous Positive Airway Pressure (ICD-10-PCS; principal; 2018-01-15)
DX: A41.9 Sepsis, unspecified organism (principal); J18.9 Pneumonia, unspecified organism; J96.01 Acute respiratory failure with hypoxia; I21.4 Non-ST elevation (NSTEMI) myocardial infarction; E43 Unspecified severe protein-calorie malnutrition; N17.0 Acute kidney failure with tubular necrosis; J96.02 Acute respiratory failure with hypercapnia; D61.818 Other pancytopenia; E87.1 Hypo-osmolality and hyponatremia; D68.9 Coagulation defect, unspecified; Z68.1 Body mass index [BMI] 19.9 or less, adult; C90.00 Multiple myeloma not having achieved remission; J44.9 Chronic obstructive pulmonary disease, unspecified; I50.9 Heart failure, unspecified; N18.9 Chronic kidney disease, unspecified; D63.8 Anemia in other chronic diseases classified elsewhere; Z66 Do not resuscitate; D69.6 Thrombocytopenia, unspecified; E86.0 Dehydration
CPT/HCPCS: 36415; 36600; 71045; 76770; 80053; 80061; 81003; 82378; 82550; 82553; 82784; 82803; 82962; 83020; 83036; 83615; 83880; 84153; 84484; 85025; 85060; 85610; 85730; 86140; 86300; 86334; 86703; 86705; 86709; 86803; 86850; 86900; 86901; 87040; 87340; 93005; 93306; 93970; 94640; 94660; 94664; 99291; J7620